=== PATIENT | female | born 1960 | race Caucasian/White ===

== ENCOUNTER 2017-04-03 09:55 | Emergency (ER) | payer MEDICARE, MEDICAID ==
[2017-04-03] VITALS (8 sets, daily range): BP systolic 92–112; BP diastolic 47–61
[~2017-04-03] VITALS: Ht 162.6 cm; Wt 45.4 kg
[2017-04-03 11:00] LABS: BASOPHILS % (AUTO) 0.6 % (0.0-2.0); EOSINOPHILS % (AUTO) 0.1 % (0.0-3.0); LYMPHOCYTES % (AUTO) 15.2 % (20.0-45.0); MEAN CORPUSCULAR HEMOGLOBIN 33.7 PG (27.0-31.0); MEAN CORPUSCULAR HGB CONC 33.3 G/DL (32.0-36.0); MEAN CORPUSCULAR VOLUME 101 FL (80-99); MEAN PLATELET VOLUME 7.1 FL (6.5-10.1); MONOCYTES % (AUTO) 5.5 % (1.0-10.0); NEUTROPHILS % (AUTO) 78.6 % (45.0-75.0); PLATELET COUNT 129 K/UL (150-450); RED CELL DISTRIBUTION WIDTH 11.7 % (11.6-14.8); WHITE BLOOD COUNT 9.9 K/UL (4.8-10.8)
--- NOTE | 2017-04-03 11:15 | Emergency Room Report ---
History of Present Illness General Chief Complaint: Altered Mental Status Source: EMS (RIZWANA ZHOU M.D.) Present Illness HPI 56-year-old female presents ED for evaluation. Patient brought in by EMS for "altered mental status". EMS states that patient was sitting on the street in front of her apartment building laughing and giggling. Neighbor called 911. Upon arrival patient is awake and alert but not answering questions. No signs of trauma. Neighbor does not know if patient has a psychiatric history or is using drugs. No other aggravating relieving factors. No other associated symptoms (RIZWANA ZHOU M.D.) Allergies: Coded Allergies: METHOCARBAMOL (Verified Allergy, Unknown, 10/18/10) UNABLE TO ASSESS (Unverified , 04/03/17) Patient History Past Medical History: none Past Surgical History: none Pertinent Family History: none Social History: Reports: drug use, Denies: smoking, alcohol use Now: No Immunizations: UTD Reviewed Nursing Documentation: PMH: Agreed, PSxH: Agreed (RIZWANA ZHOU M.D.) Nursing Documentation-PMH Past Medical History Deferred: Pt Cognitively Impaired Past Medical History: Deferred (RIZWANA ZHOU M.D.) Review of Systems All Other Systems: negative except mentioned in HPI (RIZWANA ZHOU M.D.) Physical Exam Vital Signs Date Time Temp Pulse Resp B/P (MAP) Pulse Ox O2 Delivery O2 Flow Rate FiO2 04/03/17 09:42 98.4 66 14 109/55 98 Room Air Sp02 EP Interpretation: reviewed, normal General Appearance: no apparent distress, alert Head: normocephalic ENT: normal ENT inspection Neck: normal inspection Respiratory: chest non-tender, lungs clear, normal breath sounds, speaking full sentences Cardiovascular #1: regular rate, rhythm, no edema Gastrointestinal: normal bowel sounds, non tender, soft, non-distended, no guarding, no rebound Rectal: deferred Genitourinary: no CVA tenderness Musculoskeletal: normal inspection Neurologic: alert, other - not answering questions Psychiatric: other - not answering questions Skin: normal inspection Lymphatic: normal inspection (RIZWANA ZHOU M.D.) Medical Decision Making Diagnostic Impression: Primary Impression: Altered mental status Additional Impressions: Substance abuse Benzodiazepine withdrawal ER Course Patient was noted to be somewhat agitated and was given sedation by previous physician. The patient was observed in the emergency department was continued to be somnolent. Patient was endorsed to Dr. Bey pending sobering. 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, states that she chronically takes benzodiazepines, last usage was yesterday, the patient feels like she is was driving however states that she has a patch at home States that she wants to go home, patient is walking all over the emergency room on her own, wanting to go outside and smoke a cigarette She is tolerating by mouth, ate a sandwich, not in acute distress, no headache nausea vomiting, no suicidal or homicidal ideation, no auditory hallucinations Patient states that she will go home by calling cab Will discharge patient to home (Camron Bey M.D.) EKG Diagnostic Results Rate: normal Rhythm: NSR ST Segments: no acute changes ASA given to the pt in ED: No (RIZWANA ZHOU M.D.) Rhythm Strip Diag. Results EP Interpretation: yes Rhythm: NSR, no PVC's, no ectopy (RIZWANA ZHOU M.D.) Last Vital Signs Date Time Temp Pulse Resp B/P (MAP) Pulse Ox O2 Delivery O2 Flow Rate FiO2 04/03/17 10:59 97.9 69 11 103/61 100 Room Air (RIZWANA ZHOU M.D.) Status: improved (Keyur Proctor) Disposition: HOME, SELF-CARE Condition: Stable Referrals: SHAHLA ERIC (PCP) RIZWANA ZHOU M.D. Apr 03, 2017 11:15 Keyur Proctor Apr 03, 2017 21:43 Camron Bey M.D. Apr 03, 2017 22:30
[2017-04-03 11:16] LABS: ANION GAP 12 mmol/L (5-15); CALCIUM 9.6 MG/DL (8.5-10.1); CARBON DIOXIDE 30 MMOL/L (21-32); CHLORIDE 101 MMOL/L (98-107); GLOMERULAR FILTRATION RATE 57.4 mL/min (>60); POTASSIUM 3.9 MMOL/L (3.5-5.1); SODIUM 143 MMOL/L (136-145)
[2017-04-03 11:22] LABS: ALANINE AMINOTRANSFERASE 15 U/L (12-78); ALBUMIN/GLOBULIN RATIO 0.9 (1.0-2.7); ASPARTATE AMINO TRANSFERASE 23 U/L (15-37); TOTAL PROTEIN 9.2 G/DL (6.4-8.2)
[2017-04-03 11:24] LABS: ACETAMINOPHEN < 2 MCG/ML (10-30); ALCOHOL < 3 mg/dL
[2017-04-03] MEDS ORDERED: [UNRECOGNIZED DRUG - OTHER] PO (11:28)
[2017-04-03] MEDS ORDERED: LORazepam Inj 2mg/ml 1ml IM ONE (14:15)
[2017-04-03] MEDS ORDERED: Haloperidol 5mg/ml Inj IM ONE (14:15)
[2017-04-03] MEDS ORDERED: XANAX0.25 MG ORAL (16:15)
[2017-04-03] MEDS ORDERED: LORazepam 1mg tab ORAL ONE (22:30)
--- NOTE | 2017-04-05 11:00 | Cardiology Report ---
APPROVED REPORT EKG Measurement Heart [id number] Normal sinus rhythm with sinus arrhythmia Possible Left atrial enlargement Borderline ECG
== END 2017-04-03 22:41 | disposition home or self-care (01) ==
LOC: EDBD 09:55 → EMR 10:40
DX: R41.82 Altered mental status, unspecified (principal); F13.239 Sedative, hypnotic or anxiolytic dependence with withdrawal, unspecified
CPT/HCPCS: 36415; 80053; 80307; 85025; 93005; 96360; 96372; 99284; G0480; J1630; 80329; 96361